=== PATIENT | female | born 1960 | race Caucasian/White ===

== ENCOUNTER 2023-05-28 13:38 | Outpatient (REF) | payer OTHER, SELFPAY ==
--- NOTE | ~2023-05-28 | XR_ITS ---
EXAMINATION: XR hand LT min 3V, XR hand RT min 3V CLINICAL INFORMATION: Pain COMPARISON: None TECHNIQUE: 3 views of the bilateral hands FINDINGS: RIGHT HAND: Lateral view is significantly technically limited. No acute fracture or dislocation. Mild degenerative changes of the interphalangeal joints. No cortical erosion. Soft tissues are unremarkable. LEFT HAND: No acute fracture or dislocation. Punctate well corticated osseous fragment adjacent to the left ulnar styloid may reflect sequelae of remote avulsion fracture. Mild degenerative changes of the interphalangeal joints. No cortical erosion. Soft tissues are unremarkable. XR/XR hand RT min 3V IMPRESSION: Mild degenerative changes of the hands. Punctate well corticated osseous fragment adjacent to the left ulnar styloid may reflect sequelae of remote avulsion fracture.
--- NOTE | ~2023-05-28 | XR_ITS ---
EXAMINATION: XR hand LT min 3V, XR hand RT min 3V CLINICAL INFORMATION: Pain COMPARISON: None TECHNIQUE: 3 views of the bilateral hands FINDINGS: RIGHT HAND: Lateral view is significantly technically limited. No acute fracture or dislocation. Mild degenerative changes of the interphalangeal joints. No cortical erosion. Soft tissues are unremarkable. LEFT HAND: No acute fracture or dislocation. Punctate well corticated osseous fragment adjacent to the left ulnar styloid may reflect sequelae of remote avulsion fracture. Mild degenerative changes of the interphalangeal joints. No cortical erosion. Soft tissues are unremarkable. XR/XR hand LT min 3V IMPRESSION: Mild degenerative changes of the hands. Punctate well corticated osseous fragment adjacent to the left ulnar styloid may reflect sequelae of remote avulsion fracture.
== END 2023-05-28 13:39 | disposition home or self-care (01) ==
LOC: HO.HOSX 13:38
PROVIDERS: PCP Family Medicine; Visit Provider Orthopaedic Surgery
DX: M79.642 Pain in left hand (principal); M79.641 Pain in right hand; M25.641 Stiffness of right hand, not elsewhere classified; M25.642 Stiffness of left hand, not elsewhere classified
CPT/HCPCS: 73130; 99202